=== PATIENT | female | born 1960 | race Caucasian/White ===

== ENCOUNTER → 2017-07-07 | Outpatient (CLI) | payer OTHER ==
[~2017-07-07] MED LIST: ASPIRIN 81MG TA81 MG PO; BISOPROLOL 5MG T5 MG PO; CELEBREX 200MG200 MG PO; CRESTOR5 MG PO; GABAPENTIN300 MG PO; LEVOTHYROXINE0.1 M1 PO; MEDROL 4MG. DOSE4 MG PO; OMEPRAZOLE20 MG PO; SYNTHROID 0.0.075 MG PO; ZITHROMAX Z PA250 MG PO
[2017-07-07 09:19] LABS: BILIRUBIN, INDIRECT 0.44 mg/dL (0-0.9); BUN 10 mg/dL (7-18)
[2017-07-07 09:22] LABS: GFR (ESTIMATED) 75 ML/MIN (59-)
--- NOTE | 2017-07-07 12:21 | RADIOLOGY REPORT PS360 ---
History and Indications: Hypertension, hyperlipidemia, coronary artery disease, preop evaluation Procedure: Patient exercised on Ottoniel protocol 10 min and 30 seconds, resting heart rate was 64 bpm, resting blood pressure 150/85, with exercise maximum heart rate achieved was 1 55 bpm 93% of the maximum predicted heart rate and a blood pressure was 205/86. Test was started due to shortness of breath patient denied any complained of chest pain. Patient has good exercise capacity achieved 12.8 mets of workload on treadmill, blood pressure response to exercise was hypertensive. Electrocardiogram: Resting electrocardiogram showed sinus rhythm, with exercise there is less than 1.[address] segment depression noted from the baseline EKG. The EKG portion of the exercise Myoview is negative for ischemia. Cardiac stress and resting SPECT images: Cardiac stress and rest SPECT images were Myoview 10.5 mCi at rest and 32.8 mCi at stress, gated SPECT further analysis of segmental wall motion and calculation of the ejection fraction also done. Cardiac stress and rest SPECT images show mild decreased tracer activity in the anterior wall with normal contractility in the gated SPECT is likely secondary to soft tissue collection, no obvious reversible ischemia seen. The ejection fraction is 63% with no obvious regional wall motion abnormality, right ventricle is mildly enlarged with normal contractility. Conclusion: 1. The EKG portion of the exercise Myoview is negative for ischemia, recent has good exercise capacity achieved 12.8 mets of workload on treadmill, the blood pressure response to exercise was hypertensive, there was no exercise-induced chest discomfort. 2. No obvious scintigraphic evidence of reversible ischemia seen, computer derived ejection fraction is 63% with no obvious regional wall motion abnormality, right ventricle is mildly enlarged with normal contractility.
== END ==
LOC: RAD 06:23 → LAB 06:23 → RAD 06:30
PROVIDERS: Internal Medicine Cardiovascular Disease
DX: I25.10 Atherosclerotic heart disease of native coronary artery without angina pectoris (principal); Z01.812 Encounter for preprocedural laboratory examination
CPT/HCPCS: A9502

== ENCOUNTER 2017-08-04 09:54 | Day surgery (SDC) | payer OTHER ==
[~2017-08-04] VITALS: Ht 165.1 cm; Wt 77.1 kg
--- NOTE | 2017-08-04 12:22 | Operative Note ---
Upper GI Endoscopy Procedure date: 08/04/17 Date of : 64 Procedure:Upper GI Endoscopy Esophagogastroduodenoscopy with cold biopsies Indications: Mrs. Witt is a 57-year-old female with epigastric abdominal pain for the last 18 months or so. She has had some bloating and burping. She also has some chronic constipation. Her heartburn symptoms are controlled with omeprazole. She reports no nausea, early satiety, chest pain or dysphagia. She has had no melena or hematochezia. She reports no weight loss. Performing Provider: Jimbo Wang MD Referring Provider: Zi Quijano M.D. Sedation: MAC sedation Procedure: Prior to the procedure, a history and physical exam was performed, and patients medications and allergies were reviewed. The risks and benefits of the procedure and the sedation options and risks were discussed with the patient. All questions were answered and informed consent was obtained. The patient was brought to the procedure room. Patient identification and proposed procedure were verified by the physician and the nurse. The patient was placed in a left lateral decubitus position and the scope was passed under direct vision. Throughout the procedure, the patient's blood pressure, pulse, and oxygen saturations were monitored continuously. The endoscope was introduced through the mouth, and advanced to the second part of duodenum. The upper GI endoscopy was accomplished without difficulty. The patient tolerated the procedure well. Findings: The scope was passed directly into the upper esophagus and advanced to the third portion of the duodenum. The post bulbar duodenum and duodenal bulb were normal with normal mucosa and conniventes. The scope was withdrawn through a normal duodenal bulb and pylorus into the stomach. There was very mild linear erythema of the antrum. The remainder of the antrum, body and fundus of the stomach were grossly normal. Upon retroflexion there was a small to medium sized 2-3 cm hiatal hernia. 2 biopsies were taken in the antrum and along the lesser curvature for histology. The scope was then withdrawn into the esophagus. There was a single tongue of salmon-colored mucosa that was biopsied to rule out Rich's esophagus/short segment Rich's. There was no evidence of reflux esophagitis. The remainder of the esophageal mucosa was normal. Immediate complications: None EBL (ml): 0 Impression: 1. Nonerosive gastroesophageal reflux disease with mild esophageal dysmotility and 2-3 cm hiatal hernia and single tongue of salmon colored mucosa biopsied to rule out intestinal metaplasia/short segment Rich's esophagus 2. Very mild linear reactive gastritis Recommendations: I will follow-up the biopsies. I do feel that the patient has functional dyspepsia and mild functional bowel disease with IBSC. We will discuss additional dietary measures and treatment options. at [id number]
--- NOTE | 2017-08-04 12:38 | Operative Note ---
Colonoscopy ([facility]) Procedure date: 08/04/17 Date of : 64 Procedure:Colonoscopy Colonoscopy Indications: Mrs. Witt is a 57-year-old female who is here for initial screening colonoscopy. She has some dyspepsia and chronic constipation/IBSconstipation. She reports no rectal bleeding, weight loss or change in bowel habits. She does state that her paternal grandfather had colon cancer. Performing Provider: Jimbo Wang MD Referrring Provider: Zi Quijano M.D. Sedation: MAC sedation Procedure: Prior to the procedure, a history and physical exam was performed, and patient medications and allergies were reviewed. The risks and benefits of the procedure and the sedation options and risks were discussed with the patient. All questions were answered and informed consent was obtained. Patient identification and proposed procedure were verified by the physician and the nurse. The patient was placed in a left lateral decubitus position. Throughout the procedure, the patient's blood pressure, pulse, and oxygen saturations were monitored continuously. Findings: On digital rectal examination there was normal rectal tone. There were no external hemorrhoids. The colonoscope was introduced through the anal canal to the rectum and advanced to the cecum. The ileocecal valve and appendiceal orifice were identified. The scope was advanced a short distance into the ileum which appeared grossly normal. The scope was then withdrawn into the colon. The cecum, ascending, transverse, descending, sigmoid and rectum were grossly normal. There were no mucosal abnormalities identified. Upon retroflexion within the rectum there were grade 1 internal hemorrhoids. Impressions: 1. Normal colonoscopy with intubation of the terminal ileum 2. Grade 1 internal hemorrhoids Recommendations: Based on the patient's family history, I would consider repeat screening/ surveillance colonoscopy again in 5 years. We will discuss additional treatment of her IBSconstipation and dyspepsia. Complications: None EBL (ml): 0 at 1233
[2017-08-04 16:23] VITALS: BP 120/76
== END 2017-08-04 13:15 | disposition home or self-care (01) ==
LOC: SDC 09:54
PROVIDERS: Internal Medicine Gastroenterology
PROC: 0DB78ZX Excision of Stomach, Pylorus, Via Natural or Artificial Opening Endoscopic, Diagnostic (ICD-10-PCS; 2017-08-04)
PROC: 0DJD8ZZ Inspection of Lower Intestinal Tract, Via Natural or Artificial Opening Endoscopic (ICD-10-PCS; principal; 2017-08-04 11:00)
DX: Z12.11 Encounter for screening for malignant neoplasm of colon (principal); Z80.0 Family history of malignant neoplasm of digestive organs; K64.0 First degree hemorrhoids; K21.9 Gastro-esophageal reflux disease without esophagitis; K44.9 Diaphragmatic hernia without obstruction or gangrene; K29.70 Gastritis, unspecified, without bleeding